=== PATIENT | female | born 1995 | race Caucasian/White ===

== ENCOUNTER 2017-07-23 09:59 | Emergency (ER) | payer MEDICAID ==
[~2017-07-23] VITALS: Ht 152.4 cm; Wt 63.0 kg
[~2017-07-23 09:59] MED LIST: INSLAN; INSU100I3
[2017-07-23] MEDS ORDERED: SODIUM CHLORIDE 0.9% 1,000 ML IV ONE ×2 (11:02→15:01)
[2017-07-23 11:30] LABS: BASOPHILS % 0.5 % (0.0-2.0); EOSINOPHILS % 3.2 % (0.0-5.0); HEMATOCRIT. 37.9 % (36.0-48.0); HEMOGLOBIN. 12.9 g/dL (12.0-16.0); LYMPHOCYTES % 23.4 % (20.0-50.0); MEAN CORPUSCULAR HEMOGLOBIN 29.2 pg (28.0-32.0); MEAN CORPUSCULAR VOLUME 85.8 fL (81.0-99.0); MEAN PLATELET VOLUME 8.5 fl (7.4-10.4); MONOCYTES % 7.1 % (2.0-8.0); NEUTROPHILS % 65.8 % (40.0-76.0); PLATELET 326 x1000/uL (130-400); RED BLOOD CELL COUNT 4.41 mill/uL (4.2-5.4); RED CELL DISTRIBUTION WIDTH 11.7 % (11.6-14.6)
[2017-07-23 11:34] LABS: CHLORIDE 98 mEq/L (98-107)
[2017-07-23 11:42] LABS: AMYLASE 33 IU/L (25-115); CARBON DIOXIDE 23 mEq/L (21-32)
[2017-07-23 11:44] LABS: HCG SCREEN NEGATIVE
[2017-07-23 11:45] LABS: BETA HYDROXYBUTYRATE 3.4 mMol/L (0.0-0.3)
[2017-07-23] MEDS ORDERED: INSULIN REGULAR (HUMULIN R) 300UNITS/3ML IV ONE ×2 (13:00)
[2017-07-23] MEDS ORDERED: INSULIN REGULAR (HUMULIN R) 300UNITS/3ML SUBCUT ONE (13:45)
[2017-07-23 14:22] LABS: CLARITY URINE CLEAR (CLEAR); COLOR URINE YELLOW (YELLOW); GLUCOSE URINE 3+ (NEGATIVE); KETONES URINE 3+ (NEGATIVE); LEUKOCYTE ESTERASE URINE NEGATIVE (NEGATIVE); NITRITE URINE NEGATIVE (NEGATIVE); OCCULT BLOOD URINE NEGATIVE (NEGATIVE); PROTEIN URINE NEGATIVE (NEGATIVE); SPECIFIC GRAVITY URINE 1.034 (1.005-1.030); UROBILINOGEN URINE 0.2 E.U./dL (0.2-1.0)
[2017-07-23 17:16] VITALS: BP 120/78
== END 2017-07-23 17:17 | disposition home or self-care (01) ==
LOC: ER 10:34
DX: E10.65 Type 1 diabetes mellitus with hyperglycemia (principal); Z91.14 Patient's other noncompliance with medication regimen
CPT/HCPCS: 36415; 80053; 81001; 82010; 82150; 82962; 84703; 85025; 93005; 96361; 96372; 96374; 99285; J1815; J7030

== ENCOUNTER 2020-07-10 08:37 | Emergency (ER) | payer MEDICAID ==
[~2020-07-10] VITALS: Ht 152.4 cm; Wt 63.0 kg
[2020-07-10 08:43] VITALS: BP 114/77
== END 2020-07-10 09:11 | disposition home or self-care (01) ==
LOC: ER 08:45
DX: Z76.0 Encounter for issue of repeat prescription (principal); E11.9 Type 2 diabetes mellitus without complications; Z79.84 Long term (current) use of oral hypoglycemic drugs
CPT/HCPCS: 99283

== ENCOUNTER 2021-06-21 11:48 | Emergency (ER) | payer MEDICAID ==
[~2021-06-21] VITALS: Ht 152.4 cm; Wt 59.0 kg
[2021-06-21 11:56] VITALS: BP 125/87
[2021-06-21] MEDS ORDERED: INSLIS SUBCUT (14:58)
[2021-06-21] MEDS ORDERED: INSU100I28 SQ (14:58)
[2021-06-21] MEDS ORDERED: SODIUM CHLORIDE 0.9% 1,000 ML IV ONE (15:00)
[2021-06-21 16:12] LABS: CHLORIDE 100 mEq/L (98-107)
== END 2021-06-21 17:25 | disposition home or self-care (01) ==
LOC: ER 11:48
DX: E11.65 Type 2 diabetes mellitus with hyperglycemia (principal); Z76.0 Encounter for issue of repeat prescription; Z79.4 Long term (current) use of insulin
CPT/HCPCS: 36415; 80048; 81025; 82962; 96360; 99283

== ENCOUNTER 2023-10-16 18:46 | Emergency (ER) | payer MEDICAID, OTHER ==
[~2023-10-16] VITALS: Ht 152.4 cm; Wt 45.0 kg
[~2023-10-16 18:46] MED LIST changes: +INSLIS SUBCUT; +INSU100I28 SQ
[2023-10-16 18:51] VITALS: BP 138/99; PULSE 102; RESP 20; TEMP 98.2; O2SAT 98
[2023-10-16] MEDS ORDERED: INSU100I28 SQ ×3 (19:30→20:34)
[2023-10-16 20:13] LABS: BASOPHILS % 0.4 % (0.0-2.0); EOSINOPHILS % 2.2 % (0.0-5.0); HEMATOCRIT. 42.3 % (36.0-48.0); HEMOGLOBIN. 14.1 g/dL (12.0-16.0); LYMPHOCYTES % 30.8 % (20.0-50.0); MEAN CORPUSCULAR HEMOGLOBIN 30.8 pg (28.0-32.0); MEAN CORPUSCULAR HGB CONC 33.4 g/dL (31.0-37.0); MEAN CORPUSCULAR VOLUME 92.3 fL (81.0-99.0); MEAN PLATELET VOLUME 7.8 fl (7.4-10.4); MONOCYTES % 9.7 % (2.0-8.0); NEUTROPHILS % 56.9 % (40.0-76.0); PLATELET 363 x1000/uL (130-400); RED BLOOD CELL COUNT 4.58 mill/uL (4.2-5.4); RED CELL DISTRIBUTION WIDTH 13.4 % (11.6-14.6); WHITE BLOOD COUNT 7.1 x1000/uL (4.5-11.0)
[2023-10-16 20:27] LABS: ALANINE AMINOTRANSFERASE 24 IU/L (10-49); ALBUMIN 3.5 g/dL (3.2-4.8); ASPARTATE AMINOTRANSFERASE 19 IU/L (<34); BILIRUBIN TOTAL 0.3 mg/dL (0.1-1.0); CALCIUM 9.1 mg/dL (8.7-10.4); CARBON DIOXIDE 25 mEq/L (21-32); CHLORIDE 102 mEq/L (98-107); CREATININE 0.6 mg/dL (0.6-1.0); GLUCOSE 289 mg/dL (70-105); POTASSIUM 3.8 mEq/L (3.5-5.1); PROTEIN TOTAL 6.4 g/dL (6.0-8.3); SODIUM 137 mEq/L (136-145); UREA NITROGEN BLOOD 22 mg/dL (9-23)
== END 2023-10-16 20:47 | disposition home or self-care (01) ==
LOC: ER 18:46
DX: Z76.0 Encounter for issue of repeat prescription (principal); E11.65 Type 2 diabetes mellitus with hyperglycemia; F12.10 Cannabis abuse, uncomplicated
CPT/HCPCS: 36415; 80053; 82962; 85025; 99283

== ENCOUNTER 2024-02-06 21:26 | Emergency (ER) | payer MEDICAID ==
[~2024-02-06] VITALS: Ht 152.4 cm; Wt 59.5 kg
[2024-02-06 21:32] VITALS: TEMP 98.3; O2SAT 98
[2024-02-07] MEDS ORDERED: INSU100I28 SQ (00:47)
[2024-02-07 00:53] VITALS: BP 145/96; PULSE 97; RESP 16
== END 2024-02-07 01:00 | disposition home or self-care (01) ==
LOC: ER 21:26
DX: E11.9 Type 2 diabetes mellitus without complications (principal); Z76.0 Encounter for issue of repeat prescription; Z98.890 Other specified postprocedural states
CPT/HCPCS: 99281